=== PATIENT | female | born 1965 | race Caucasian/White ===

== ENCOUNTER 2020-05-30 10:58 | Outpatient (CLI) | payer BC ==
--- NOTE | 2020-05-30 11:46 | ULT ---
Right upper quadrant ultrasound: 05/30/2020 COMPARISON: None HISTORY: Right upper quadrant pain TECHNIQUE: Multiplanar grayscale sonographic imaging of the right upper quadrant provided. FINDINGS: Visualized pancreas appears grossly unremarkable. No focal liver lesion or intrahepatic rose iary dilatation. The hepatic parenchyma is mildly echogenic, which may signify steatosis. There is a nonmobile shadowing stone in the region of the gallbladder neck. The common bile duct measures 4 mm, within normal limits. Gallbladder wall is upper limits of normal in thickness. No pericholecystic fluid. The right kidney measures 11 cm in craniocaudal dimension and demonstrates no stone, hydronephrosis, or mass lesion. The water plumber reports a positive Gamino's sign. IMPRESSION: Nonmobile stone in the gallbladder neck. Positive Gamino's sign. Findings may reflect acu te cholecystitis in the proper clinical setting.
== END 2020-05-30 10:59 | disposition home or self-care (01) ==
LOC: SCSULT 10:58
PROVIDERS: ATTEND Family Medicine
DX: R10.11 Right upper quadrant pain (principal); K80.20 Calculus of gallbladder without cholecystitis without obstruction
CPT/HCPCS: 76705

== ENCOUNTER 2020-05-30 14:16 | Observation (INO) | payer BC ==
[2020-05-30 16:56] VITALS: BMI 36.1
[2020-05-30 17:32] LABS: #Basophils 0.1 thou/uL (0.0-0.2); #Eosinphils 0.2 thou/uL (0.0-0.7); #Lymphocytes 3.3 thou/uL (1.20-3.40); #Monocytes 0.7 thou/uL (0.11-0.59); #Neutrophils 5.8 thou/uL (1.40-6.50); %Basophils 0.9 % (0.0-1.0); %Eosinophils 1.5 % (0.0-10.0); %Lymphocytes 33.1 % (21.0-51.0); %Monocytes 6.5 % (0.0-10.0); Hemoglobin 15.3 g/dL (12.0-16.0); Mean Corpuscular HGB CONC 33.8 g/dL (32.0-36.0); Mean Corpuscular Hemoglobin 32.5 pg (27.0-31.0); Mean Corpuscular Volume 96.3 fL (78.0-98.0); Mean Platelet Volume 9.1 fL (7.4-10.4); Platelet Count 262 thou/uL (130-400); RBC Distribution Width 11.9 % (11.5-14.5); Red Blood Cell (RBC) Count 4.69 mill/uL (4.20-5.40)
[2020-05-30 18:16] LABS: ALT (SGPT) 20 U/L (8-55); AST (SGOT) 22 U/L (5-34); Albumin 4.6 g/dL (3.5-5.0); Alkaline Phosphatase 116 U/L (40-110); Anion Gap 16 mmol/L (10-20); BUN (Urea Nitrogen) 14 mg/dL (9.8-20.1); Bilirubin, Total 0.6 mg/dL (0.2-1.2); Calc. Creatinine Clearance 115 mL/min (70-130); Calcium 9.6 mg/dL (7.8-10.44); Carbon Dioxide 20 mmol/L (22-29); Chloride 108 mmol/L (98-107); Estimated GFR-MDRD 73; Glucose 96 mg/dL (70-105); Potassium 4.4 mmol/L (3.5-5.1); Protein, Total 7.6 g/dL (6.0-8.3); Sodium 140 mmol/L (136-145)
[2020-05-30] MEDS ORDERED: Ketorolac Tromethamine 30 MG/ML VIAL IVP SCH (18:30)
--- NOTE | 2020-05-30 19:50 | PDOC.FPRHP ---
- History of Present Illness Chief Complaint: RUQ pain History of Present Illness: 54 y/o F with PMHx stroke, PAD, COPD, depression/anxiety, heartburn direct admitted for presumed acute cholecystitis. Has been having intermittent RUQ pain for the past 2 months. She is unable to identify pattern of pain associated with eating. Endorses some nausea without vomiting. No loss of appetite. She had RUQ US in the outpatient setting which revealed a non-mobile stone in the GB neck. Denies fever, chills, malaise. - Allergies/Adverse Reactions Allergies Allergy/AdvReac Type Severity Reaction Status Date / Time No Known Allergies Allergy Verified 05/30/20 22:07 - Home Medications Medication Instructions Recorded Confirmed Type Acetaminophen [Tylenol] 650 mg PO PRN PRN 05/30/20 05/30/20 History Aspirin [Ecotrin Low Strength] 81 mg PO DAILY 05/30/20 05/30/20 History Atorvastatin Calcium 40 mg PO HS 05/30/20 05/30/20 History Clopidogrel Bisulfate [Clopidogrel] 75 mg PO HS 05/30/20 05/30/20 History Fluconazole 2 sprays DAILY 05/30/20 05/30/20 History Gabapentin 600 mg PO TID 05/30/20 05/30/20 History Pantoprazole [Protonix] 40 mg PO BID 05/30/20 05/30/20 History Sertraline HCl 100 mg PO DAILY 05/30/20 05/30/20 History Umeclidinium Bunn [Incruse 1 puff INH HS 05/30/20 05/30/20 History Ellipta] Ventolin HFA Inhaler 1 puff INH PRN PRN 05/30/20 05/30/20 History - History PMHx: stroke, COPD, PAD, depression, PSHx: tubal ligation, tonsillectomy FHx: CAD, DM, gallbladder problems Social: 1 ppd x 35 years - Review of Systems General: denies: fever/chills Respiratory: denies: cough, congestion, shortness of breath Cardiovascular: denies: chest pain, edema Gastrointestinal: reports: nausea, abdominal pain. denies: vomiting, diarrhea, constipation Genitourinary: denies: dysuria Skin: denies: rashes Neurological: denies: weakness - Vital signs BP: 132/82 HR: 82 RR: 20 Tmax: 97.9F Pox: 98% on RA Wt: 92.53kg - Physical Exam Constitutional: NAD, awake, alert and oriented, well developed HEENT: normocephalic and atraumatic, conjunctiva clear, no scleral icterus, grossly normal vision, grossly normal hearing Heart: RRR, normal S1/S2, no murmurs/rubs/gallops, pulses present, no edema Lungs: CTAB, no respiratory distress, good air movement Abdomen: soft, bowel sounds present -Abdomen: mild RUQ tenderness, no rebound tenderness Musculoskeletal: normal structure Neurological: no focal deficit Skin: no rash/lesions Psychiatric: normal mood and affect, intact recent and remote memory FMR H&P: Results - Labs Result Diagrams: 05/31/20 06:10 05/31/20 06:10 Lab results: WBC 10.0 thou/uL (4.8-10.8) 05/30/20 17:11 Hgb 15.3 g/dL (12.0-16.0) 05/30/20 17:11 Hct 45.2 % (36.0-47.0) 05/30/20 17:11 MCV 96.3 fL (78.0-98.0) 05/30/20 17:11 Plt Count 262 thou/uL (130-400) 05/30/20 17:11 Neutrophils % 58.0 % (42.0-75.0) 05/30/20 17:11 Sodium 140 mmol/L (136-145) 05/30/20 17:11 Potassium 4.4 mmol/L (3.5-5.1) 05/30/20 17:11 Chloride 108 mmol/L (98-107) H 05/30/20 17:11 Carbon Dioxide 20 mmol/L (22-29) L 05/30/20 17:11 BUN 14 mg/dL (9.8-20.1) 05/30/20 17:11 Creatinine 0.82 mg/dL (0.6-1.1) 05/30/20 17:11 Glucose 96 mg/dL (70-105) 05/30/20 17:11 Calcium 9.6 mg/dL (7.8-10.44) 05/30/20 17:11 Total Bilirubin 0.6 mg/dL (0.2-1.2) 05/30/20 17:11 AST 22 U/L (5-34) 05/30/20 17:11 ALT 20 U/L (8-55) 05/30/20 17:11 Alkaline Phosphatase 116 U/L (40-110) H 05/30/20 17:11 Serum Total Protein 7.6 g/dL (6.0-8.3) 05/30/20 17:11 Albumin 4.6 g/dL (3.5-5.0) 05/30/20 17:11 FMR H&P: A/P - Plan Acute cholecystitis RUQ US in outpatient setting revealing nonmobile stone in GB neck in the setting of RUQ pain. No fever. VSS. -Surgery, Dr. Kaplan, notified in outpatient setting, consulted -Plan for cholecystectomy in AM -NPO after midnight -PRN zofran, toradol for pain and nausea -LR after midnight while NPO Hx of stroke On ASA, plavix outpatient for stroke 10 years ago - hold ASA, plavix prior to surgery PAD - holding ASA, plavix as above Depression - continue home meds COPD - continue home meds Reflux - continue home meds FMR H&P: Upper Level - Plan Date/Time: 05/30/20 Carmen I, [Brandi Saucedo], have evaluated this patient and agree with findings/plan as outlined by financial analyst intern resident. Pertinent changes/additions are listed here. 54-year-old female presents as a direct admit from Dr Nicole due to concern for acute close the status. She reports that she has been having two months have been a mittens right upper quadrant pain. It has gotten worse and so was seen by Dr Nicole who ordered a right upper quadrant ultrasound which showed a non-mobile stone in the gallbladder neck. Dr Kaplan was called he said that he will evaluate her and plans are to proceed to the OR tomorrow morning. Patient denies fevers chills PO and tolerance. PE: Gen- NAD CV- RRR Resp- CTAB, no distress Abd- RUQ tenderness to palpation Extrem- cap refill good, ROM x4 Fgr 73 Cr 0.82 AST 22 ALT 20 ALP 116 A/P: #Acute cholecystitis -RUQ U/S: Non mobile stone in the GB neck, no necrosis or gas noted. +[place]. -Dr. Nicole contacted Dr. Kaplan who will evaluate patient-recs appreciated -Scheduled for surgery 05/31 in the AM -LFTs WNL, no signs of sepsis- no abx indicated at this time -Pain control with toradol -NPO at midnight, mIVF Admit: Medical/Inpt Dvt ppx: lovenox, hold in AM GI ppx: protonix Code: Full PCP: Dr. Nicole Addendum - Attending - Attending Attestation Date/Time: 05/30/201905 I personally evaluated the patient and discussed the management with Dr. Mendes and Dr. Saucedo I agree with the History, Examination, Assessment and Plan documented above with any addition or exceptions noted below. Direct admission for acute cholecystitis. Tolerating PO ok for now. No need for antibx. Sadiq for lap yvette in AM. Monitor of progression overnight. Alfredo
[2020-05-30] MEDS ORDERED: Ondansetron PF 4 MG/2 ML Vial IVP PRN (22:07)
[2020-05-30] MEDS ORDERED: Ketorolac Tromethamine 30 MG/ML VIAL IVP PRN (22:10)
[2020-05-30] MEDS ORDERED: Albuterol 200 PUFF (6.7GM INHALER) INH PRN (22:30)
[2020-05-30 23:29] LABS: Lactic Acid 0.9 mmol/L (0.5-2.2)
--- NOTE | 2020-05-31 06:26 | PDOC.FM ---
- Subjective Subjective: Tika Schwarz is doing well this morning. She endorses continuation of abdominal pain, same as yesterday. She is also complaining of back and leg pain which she says is normal for her. She endorses "feeling a little woozy" and very thirsty. She is aware she is going to cholecystectomy this morning. No SOB/dyspnea/CP/edema. - Objective Vital Signs & Weight: Vital Signs (12 hours) Temp Pulse Resp BP BP BP Pulse Ox 05/31/20 03:41 98.0 F 69 16 139/74 97 05/30/20 23:32 97.9 F 74 16 132/76 98 05/30/20 20:00 97.8 F 78 18 130/79 130/79 99 Weight Weight 92.533 kg I&O: 05/29/20 05/30/20 05/31/20 06:59 06:59 06:59 Intake Total 1135 Balance 1135 Result Diagrams: 05/31/20 06:10 05/31/20 06:10 Phys Exam - Physical Examination Constitutional: NAD (Sleeping comfortably, easily arousable) Neck: supple Respiratory: no wheezing, no rales, clear to auscultation bilateral Cardiovascular: RRR, no significant murmur Gastrointestinal: soft, no distention, positive bowel sounds Diffusely tender across lower abdomen as well as in RUQ Musculoskeletal: no edema, pulses present (radial and dp b/l) Neurological: non-focal, moves all 4 limbs Psychiatric: normal affect, A&O x 3 Skin: no rash Dx/Plan - Plan Plan: This is a 54F directly transferred from the outpatient setting for cholecystectomy. Acute cholecystitis - RUQ US in outpatient setting revealing nonmobile stone in GB neck in the setting of RUQ pain. No fever. VSS. - Surgery, Dr. Kaplan Plan for cholecystectomy in AM 9/10 - NPO after midnight - PRN zofran, toradol for pain and nausea - LR after midnight while NPO - Consider discharge after surgery pending Dr. Kaplan's recs Hx of stroke - On ASA, plavix outpatient for stroke 10 years ago - Hold ASA, plavix prior to surgery PAD - Holding ASA, plavix as above Depression - Continue home meds COPD - Continue home meds Reflux - Continue home meds Dispo: surgical floor, inpt Diet: NPO after midnight pending surgery IVF: LR DVT Ppx: ASA/Plavix held d/t pending surgery Disposition: Discharge s/p cholecystectomy pending Dr. Kaplan's recs Addendum - Attending - Attending Attestation Date/Time: 05/31/20 0037 I personally evaluated the patient and discussed the management with the team. I agree with the History, Examination, Assessment and Plan documented above with any addition or exceptions noted below. To the OR today, home pending surgery.
[2020-05-31] MEDS: Lactated Ringer's 1,000 ML IV SCH ×2 (06:27→11:25)
[2020-05-31 06:45] LABS: Hemoglobin 14.2 g/dL (12.0-16.0); Mean Corpuscular HGB CONC 32.6 g/dL (32.0-36.0); Mean Corpuscular Hemoglobin 31.7 pg (27.0-31.0); Mean Platelet Volume 8.6 fL (7.4-10.4); Platelet Count 254 thou/uL (130-400); RBC Distribution Width 11.8 % (11.5-14.5); Red Blood Cell (RBC) Count 4.48 mill/uL (4.20-5.40); White Blood Cell (WBC) Count 8.7 thou/uL (4.8-10.8)
[2020-05-31] MEDS: Ipratropium Bromide 2.5 ml Neb NEB SCH ×2 (07:06→14:33)
[2020-05-31 07:20] LABS: ALT (SGPT) 16 U/L (8-55); AST (SGOT) 16 U/L (5-34); Albumin 4.1 g/dL (3.5-5.0); Alkaline Phosphatase 105 U/L (40-110); Anion Gap 13 mmol/L (10-20); BUN (Urea Nitrogen) 18 mg/dL (9.8-20.1); Bilirubin, Total 0.4 mg/dL (0.2-1.2); Calc. Creatinine Clearance 117 mL/min (70-130); Calcium 9.2 mg/dL (7.8-10.44); Carbon Dioxide 24 mmol/L (22-29); Chloride 107 mmol/L (98-107); Estimated GFR-MDRD 75; Globulin 2.6 g/dL (2.4-3.5); Glucose 97 mg/dL (70-105); Potassium 3.8 mmol/L (3.5-5.1); Protein, Total 6.7 g/dL (6.0-8.3); Sodium 140 mmol/L (136-145)
[2020-05-31 07:35] LABS: Band 3 % (5-11); Lymphocytes 43 % (21-51); MDiff Complete? YES; Monocytes 2 % (0-10); Neutrophil 45 % (42-75); Polychromasia SLIGHT = 2-3 cells (100X) (0-2/hpf); Reactive Lymphocytes 6 % (0-10)
[2020-05-31] MEDS ORDERED: Metoprolol Tartrate 5 MG/5 ML VIAL ONE (10:46)
[2020-05-31] MEDS ORDERED: Lidocaine 1% PF 5 ML VIAL ONE (10:46)
[2020-05-31] MEDS ORDERED: Glycopyrrolate 0.2 MG/ML 5 ML SYRINGE ONE (10:46)
[2020-05-31] MEDS ORDERED: Dexamethasone 20 MG/5 ML VIAL ONE (10:46)
[2020-05-31] MEDS ORDERED: PROPOFOL 200 MG/20 ML VIAL ONE (10:46)
[2020-05-31] MEDS ORDERED: Rocuronium Bromide 10 MG/ML (10ML VIAL) ONE (10:46)
[2020-05-31] MEDS ORDERED: Ondansetron PF 4 MG/2 ML Vial ONE (10:46)
--- NOTE | 2020-05-31 10:56 | CON ---
DATE OF CONSULTATION: 05/31/2020 CHIEF COMPLAINT: Cholecystitis. HISTORY OF PRESENT ILLNESS: This is a 54-year-old female, admitted from Dr. Nicole's office with severe abdominal pain. Pain is described as sharp 8/10 in the right upper quadrant, radiates around to her right back associated with nausea, no vomiting. She has had similar pain in the past, but not this severe. No previous known history of jaundice, gallstones, pancreatitis. Ultrasound in the outpatient setting showed stone in the gallbladder neck, normal common bile duct. PAST MEDICAL HISTORY: Includes; 1. Dyslipidemia. 2. COPD. 3. Depression. PAST SURGICAL HISTORY: 1. Tubal ligation. 2. Tonsillectomy. MEDICATIONS: Medicines taken daily, see list. ALLERGIES: NO KNOWN DRUG ALLERGIES. SOCIAL HISTORY: She smokes. No alcohol or other drugs. REVIEW OF SYSTEMS: Ten-system review of systems is otherwise negative unless described above. PHYSICAL EXAMINATION: VITAL SIGNS: Blood pressure 154/86, pulse 67, respirations 18. She is afebrile. HEENT: Sclerae are anicteric. Oropharynx clear. NECK: No lymphadenopathy. CHEST: Clear. HEART: Regular rate. ABDOMEN: Soft, tender right upper quadrant with localized guarding without rebound. No abdominal or inguinal hernias. EXTREMITIES: No ischemia or edema to extremities. LABORATORY DATA: Ultrasound shows gallstones, normal common bile duct. LABORATORY DATA: White blood cell count is 8.7, hemoglobin 14. Sodium 140, potassium 3.8, creatinine is 0.8. Liver function tests normal. ASSESSMENT: Acute cholecystitis secondary to gallstones. PLAN: Laparoscopic cholecystectomy. Risks, benefits, alternatives discussed with the patient. She gives consent. We will do this today. Job ID: [id number]
[2020-05-31] MEDS: Gabapentin 300 MG CAP PO SCH ×2 (11:24→15:23)
[2020-05-31] MEDS ORDERED: cefOXitin Sodium/Dextrose 2 GM/50 ML BAG ONE (11:47)
[2020-05-31] MEDS ORDERED: Bupivacaine 0.25% HCL 30 ML VIAL ONE (11:50)
[2020-05-31] MEDS ORDERED: Lidocaine 1% w/Epinephrine 1:100K 20 ML VIAL ONE (11:50)
[2020-05-31] MEDS ORDERED: Fentanyl 100 MCG/2 ML VIAL ONE ×2 (11:56→13:49)
[2020-05-31] MEDS ORDERED: ceFOXitin 1 GM VIAL ONE (12:20)
[2020-05-31] MEDS ORDERED: Promethazine HCl 25 MG/ML VIAL ONE (13:21)
[2020-05-31] MEDS ORDERED: Calcium Carbonate 500 MG ChewTAB PO PRN (13:38)
[2020-05-31] MEDS ORDERED: D5 1/2 NS w/20 mEq KCL 1,000 ML IV SCH (13:38)
[2020-05-31] MEDS ORDERED: HYDROcodone/Acetaminophen 7.5/325 mg Tablet PO PRN (13:38)
[2020-05-31] MEDS ORDERED: Dextrose 5% in Water 1,000 ML IV PRN (13:38)
[2020-05-31] MEDS ORDERED: Mag-Al 1200 mg/1200 mg/30 ML UDCUP PO PRN (13:38)
[2020-05-31] MEDS ORDERED: Morphine 4 MG/ML VIAL SLOW IVP PRN (13:38)
[2020-05-31] MEDS ORDERED: Ondansetron PF 4 MG/2 ML Vial IVP PRN (13:38)
[2020-05-31] MEDS ORDERED: Promethazine HCl 25 MG/ML VIAL IM PRN (13:38)
[2020-05-31] MEDS ORDERED: hydrALAZINE 20 MG/ML VIAL SLOW IVP PRN (13:38)
[2020-05-31] MEDS ORDERED: Dextrose 50% Abboject 50 ML SYRINGE SLOW IVP PRN (13:38)
[2020-05-31] MEDS ORDERED: Morphine 2 MG/ML VIAL SLOW IVP PRN (13:38)
[2020-05-31 14:40] VITALS: TEMP 98.3
[2020-05-31 16:41] VITALS: BP 117/77
--- NOTE | 2020-05-31 18:13 | OP ---
DATE OF PROCEDURE: 05/31/2020 PREOPERATIVE DIAGNOSIS: Acute cholecystitis. POSTOPERATIVE DIAGNOSIS: Acute cholecystitis. PROCEDURE PERFORMED: Laparoscopic cholecystectomy. ANESTHESIA: General. ESTIMATED BLOOD LOSS: Minimal. COMPLICATIONS: None. SPECIMEN: Gallbladder. FINDINGS: Acute cholecystitis. PROCEDURE IN DETAIL: The patient was taken to the operating room and laid supine on the operating room table. After general anesthetic was obtained, the abdomen was prepped and draped in a sterile fashion. A curved incision was made below the umbilicus. Cautery was used to dissect down to the umbilical fascia. Umbilical fascia was incised and held up using a Adal. The abdominal cavity was entered using a Carley clamp. Holding stitch of Vicryl was placed on each side of the fascia. Alexander trocar was placed. High-flow pneumoperitoneum was obtained. An upper midline 5 mm port and 2 right upper quadrant 5 mm ports were placed under direct camera visualization. The gallbladder was retracted from the gallbladder fossa. The peritoneum of the gallbladder was opened anteriorly and posteriorly. The critical view triangle was seen showing only the cystic duct and cystic artery branching from medial to lateral. There were no other branching structures. Two clips were placed proximally on the cystic duct and one laterally. It was cut using laparoscopic scissors. The cystic artery was taken in the same way. Electrocautery was then used to dissect the gallbladder out of the gallbladder fossa. The gallbladder was placed in an Endo catch bag and brought out through the Alexander. There was no bleeding or bile in the liver bed. The cystic duct stump and cystic artery stump were intact, without evidence of extravasation or bleeding. All port sites were infiltrated using local anesthesia. All ports were removed under camera visualization. Pneumoperitoneum was let down. The Vicryl was used to close the fascial defect below the umbilicus. All incisions were irrigated and closed using 4-0 Monocryl and Dermabond. The patient was en route to Recovery in stable condition. All instrument counts, needle counts and lap counts were correct. Job ID: [id number]
[2020-05-31] MEDS ORDERED: Famotidine 20 MG TAB PO SCH (21:00)
[2020-05-31] MEDS ORDERED: Famotidine/PF 20 mg/2ml Vial SLOW IVP SCH (21:00)
[2020-05-31] MEDS ORDERED: Atorvastatin Calcium 40 MG TAB PO SCH (21:00)
--- NOTE | 2020-06-01 03:51 | DIS ---
DATE OF ADMISSION: 05/30/2020 DATE OF DISCHARGE: 05/31/2020 RESIDENT: Nikky Stoddard MD ADMITTING ATTENDING: Dr. Radha Pink. DISCHARGE ATTENDING: Dr. Osmany Camacho. CONSULTS: Surgery (Dr. Kaplan, 05/30). PROCEDURES: Cholecystectomy by Dr. Kaplan (05/31). PRIMARY DIAGNOSIS: Acute cholecystitis. SECONDARY DIAGNOSES: 1. History of stroke. 2. Peripheral artery disease. 3. Depression. 4. Chronic obstructive pulmonary disease. 5. Gastroesophageal reflux. DISCHARGE MEDICATIONS: 1. Ventolin inhaler. 2. Incruse Ellipta. 3. Sertraline 100 mg s.i.d. 4. Aspirin 81 mg. 5. Protonix 40 mg b.i.d. 6. Atorvastatin 40 mg at bedtime. 7. Fluconazole. 8. Clopidogrel 75 mg at bedtime. 9. Gabapentin 600 mg t.i.d. DISCONTINUED MEDICATIONS: None. HISTORY OF PRESENT ILLNESS/HOSPITAL COURSE: This patient is a 54-year-old direct admit of Dr. Genevieve Nicole. She had been having intermittent right upper quadrant pain and right upper quadrant ultrasound in the outpatient setting revealed a nonmobile stone in the gallbladder neck. Dr. Kaplan was consulted in the outpatient setting and agreed to admit and perform the surgery. On 05/31, the cholecystectomy was performed and Dr. Kaplan felt comfortable sending her home afterward. Aspirin and Plavix were held prior to the surgery and continued afterward. All other home medications were continued. DISPOSITION: Stable. DISCHARGE INSTRUCTIONS: Location: Home. Diet: Regular. Activity: As tolerated. Followup: Follow up with Dr. Kaplan as instructed, and with Dr. Nicole within 7 days. Job ID: [id number] [facility]
== END 2020-05-31 17:05 | disposition home or self-care (01) ==
LOC: SJJU 16:07
PROVIDERS: ADMIT Family Medicine; ATTEND Family Medicine
PROC: 0FT44ZZ Resection of Gallbladder, Percutaneous Endoscopic Approach (ICD-10-PCS; principal; 2020-05-31)
DX: K80.12 Calculus of gallbladder with acute and chronic cholecystitis without obstruction (principal); J44.9 Chronic obstructive pulmonary disease, unspecified; F41.9 Anxiety disorder, unspecified; F32.9 Major depressive disorder, single episode, unspecified; I73.9 Peripheral vascular disease, unspecified; K21.9 Gastro-esophageal reflux disease without esophagitis; F17.210 Nicotine dependence, cigarettes, uncomplicated; Z79.02 Long term (current) use of antithrombotics/antiplatelets; Z79.82 Long term (current) use of aspirin; Z79.899 Other long term (current) drug therapy; Z86.73 Personal history of transient ischemic attack (TIA), and cerebral infarction without residual deficits
CPT/HCPCS: 36415; 80053; 82977; 83605; 85007; 85025; 85027; 88304; 94640; 96361; 96374; 96376; G0378; J0694; J1100; J1885; J2405; J2550; J2704; J3010; S0020

== ENCOUNTER → 2020-12-20 | Day surgery (SDC) | payer BC | LOC: BICULT 12:38 | PROVIDERS: ATTEND Family Medicine | PROC: 0H9T0ZX Drainage of Right Breast, Open Approach, Diagnostic (ICD-10-PCS; principal; 2020-12-20) | DX: N60.21 Fibroadenosis of right breast (principal) | CPT/HCPCS: 19081; 76098; 88305 ==

== ENCOUNTER → 2023-06-22 | Outpatient (CLI) | payer BC | LOC: SLEEPLAB 17:00 | PROVIDERS: ATTEND Family Medicine | DX: G47.33 Obstructive sleep apnea (adult) (pediatric) (principal); R53.83 Other fatigue; R51.9 Headache, unspecified; E66.9 Obesity, unspecified; I10 Essential (primary) hypertension; G25.81 Restless legs syndrome; Z68.33 Body mass index [BMI] 33.0-33.9, adult | CPT/HCPCS: 95800 ==

== ENCOUNTER 2023-08-19 17:00 | Outpatient (CLI) | payer BC | END 2023-08-19 17:01 | disposition home or self-care (01) | LOC: SLEEPLAB 17:00 | PROVIDERS: ATTEND Family Medicine | DX: G47.33 Obstructive sleep apnea (adult) (pediatric) (principal); R53.83 Other fatigue; R51.9 Headache, unspecified; E66.9 Obesity, unspecified; I10 Essential (primary) hypertension; R06.83 Snoring; G47.10 Hypersomnia, unspecified; G25.81 Restless legs syndrome; G47.00 Insomnia, unspecified | CPT/HCPCS: 95810 ==